=== PATIENT | female | born 1995 | race African-American/Black ===

== ENCOUNTER 2018-03-02 23:45 | Emergency (ER) | payer SELFPAY ==
[~2018-03-02] VITALS: Ht 165.1 cm; Wt 64.0 kg
[2018-03-03] MEDS ORDERED: ONDANSETRON HCL 4MG/2ML VIAL IV STA (00:32)
[2018-03-03] MEDS ORDERED: MORPHINE SULFATE 4 MG/ML CPJ (NOT FOR IM USE) IV STA (00:32)
[2018-03-03] MEDS ORDERED: SODIUM CHLORIDE 0.9% 1,000 ML IV ONE (00:32)
[2018-03-03 00:52] LABS: BASOPHILS % 0.5 % (0.0-2.0); EOSINOPHILS % 0.7 % (0.0-5.0); HEMATOCRIT. 34.2 % (36.0-48.0); HEMOGLOBIN. 11.2 g/dL (12.0-16.0); LYMPHOCYTES % 9.6 % (20.0-50.0); MEAN CORPUSCULAR HEMOGLOBIN 27.2 pg (28.0-32.0); MEAN CORPUSCULAR VOLUME 83.3 fL (81.0-99.0); MEAN PLATELET VOLUME 7.1 fl (7.4-10.4); MONOCYTES % 8.7 % (2.0-8.0); NEUTROPHILS % 80.5 % (40.0-76.0); PLATELET 634 x1000/uL (130-400); RED BLOOD CELL COUNT 4.11 mill/uL (4.2-5.4); RED CELL DISTRIBUTION WIDTH 16.9 % (11.6-14.6)
[2018-03-03 00:56] LABS: CHLORIDE 112 mEq/L (98-107)
[2018-03-03 00:59] LABS: HCG SCREEN NEGATIVE
[2018-03-03 01:19] VITALS: BP 113/75
[2018-03-03] MEDS ORDERED: IOHEXOL-300 100 ML BOTTLE ONE (02:44)
== END 2018-03-03 10:30 | disposition home or self-care (01) ==
LOC: ER 03-03 00:51
DX: R55 Syncope and collapse (principal); R51 Headache; M79.605 Pain in left leg; V49.40XA Driver injured in collision with unspecified motor vehicles in traffic accident, initial encounter; Y93.89 Activity, other specified; Y92.89 Other specified places as the place of occurrence of the external cause; Y99.8 Other external cause status
CPT/HCPCS: 36415; 70450; 71260; 72125; 73590; 74177; 80053; 84703; 85025; 96374; 96375; 99285; J2270; J2405; J7030; Q9967